=== PATIENT | female | born 1960 | race Caucasian/White ===

== ENCOUNTER 2017-05-31 23:44 | Emergency (ER) | payer OTHER ==
[~2017-05-31] VITALS: Ht 172.7 cm; Wt 90.7 kg
[~2017-05-31 23:44] MED LIST: LISINOPRIL10 MG PO; NAPROSYN500 MG PO; NORCO 5-325 TA1 EACH PO; NORVASC5 MG PO; PANTOPRAZOLE SO40 M1 PO; ULTRAM 50MG TAB50 MG PO; VICODIN 5-5001 EACH PO; XANAX 0.5 MG0.5 M1 PO
[2017-06-01] MEDS ORDERED: NORCO 5-325 TA1 EACH PO (00:46)
[2017-06-01] MEDS ORDERED: SENNA-DOCUSATE1 EACH PO (00:46)
[2017-06-01] MEDS ORDERED: NAPROSYN500 MG PO (00:46)
== END 2017-06-01 01:31 | disposition home or self-care (01) ==
LOC: ER 23:44
DX: S63.592A Other specified sprain of left wrist, initial encounter (principal); I10 Essential (primary) hypertension; K21.9 Gastro-esophageal reflux disease without esophagitis; F17.210 Nicotine dependence, cigarettes, uncomplicated; W22.8XXA Striking against or struck by other objects, initial encounter; Y93.89 Activity, other specified; Y92.89 Other specified places as the place of occurrence of the external cause; Y99.8 Other external cause status

== ENCOUNTER → 2020-04-06 | Outpatient (CLI) | payer OTHER ==
[~2020-04-06] MED LIST changes: -PANTOPRAZOLE SO40 M1 PO; +PROTONIX 20 MG20 M1 PO; +SENNA-DOCUSATE1 EACH PO
== END ==
LOC: LAB 07:40
PROVIDERS: ATTEND Specialist
DX: Z01.812 Encounter for preprocedural laboratory examination (principal); Z20.828 Contact with and (suspected) exposure to other viral communicable diseases

== ENCOUNTER → 2020-04-11 | Outpatient (CLI) | payer OTHER ==
[~2020-04-11] VITALS: Ht 162.6 cm; Wt 86.2 kg
--- NOTE | 2020-04-13 09:53 | P ---
[facility] [place] [address] PROCEDURE REPORT Name: AWA STOUT Room #: REG NANCIE Davis#: [id number] Admission: 04/11/20 Attend Phys: Randal Coombs Discharge: Date of : 58 Report #: [id number] THIS REPORT FOR: cc: Ricky Wellington,Randal Laughlin MD ~ CC: Randal Wellington MD DATE OF SERVICE: 04/11/2020 PROCEDURE PERFORMED: Upper endoscopy with biopsy. HISTORY OF PRESENT ILLNESS: The patient is a 59-year-old female with a history of intermittent abdominal pain. This is fairly diffuse. She does have a history of gastroesophageal reflux disease, was taking Protonix for a number of years, recently switched to Prilosec [id number]. No change in her symptoms, no improvement in her symptoms. Symptoms typically occur on a daily basis. She denies any nausea, vomiting or dysphagia. Bowel movements have been fairly normal, although some constipation. She has had a previous cholecystectomy. Symptoms are worse after eating. Symptoms began approximately 2 months ago. DESCRIPTION OF PROCEDURE: The risks and benefits of the procedure were explained to the patient, those risks including but not limited to bleeding, perforation and the risk of sedation. She understood these risks and gave informed consent. Sedation was given using propofol per Anesthesia. Next, using a standard Olympus upper endoscope, the scope was placed in the patient's mouth and advanced under direct vision to the esophagus, stomach and into the second portion of the duodenum. Larynx was normal in appearance. The esophagus was normal throughout. The GE junction was normal. Overall, the gastric mucosa was normal. Biopsies were obtained to rule out the possibility of H. pylori. The pylorus was normal and patent. The duodenal bulb, first and second portion were all normal. Random biopsies of the second portion of the duodenum were also obtained to rule out the possibility of celiac sprue. At this point, the scope was then withdrawn and the procedure terminated. The patient tolerated the procedure well. IMPRESSION: Normal upper endoscopy. RECOMMENDATIONS: 1. Await biopsy results. 2. Continue daily PPI therapy. 3. We will start Levsin on a p.r.n. basis for intermittent abdominal pain. 4. The patient states last colonoscopy had colon polyps. She was unsure when [address] [address] PROCEDURE REPORT Name: ARGELIAAWA Room #: REG NANCIE Davis#: [id number] Admission: 04/11/20 Attend Phys: Randal Coombs Discharge: Date of : 58 Report #: [id number] this was performed. In reviewing on the computer, it appears last colonoscopy as far as our history shows 2008; polyps were removed at that time. Prep was fair. Recommended repeat colonoscopy at that time in 1 year. I would recommend repeating colonoscopy at this time. Thank you for allowing me to participate in her care. <ELECTRONICALLY SIGNED> By: Randal Bonilla MD 04/13/20 0953 [id number] [id number] Randal Bonilla MD /nt
--- NOTE | 2020-04-13 18:06 | PATH ---
[facility] [address] [place] [address] PATHOLOGY RPT PROCEDURE Name: ARGELIAAWA Room #: REG NANCIE [place].#: [id number] Admission: 04/11/20 Date of : 58 Discharge: Report #: [id number] Path Case #: [id number] [facility] Accession Number: [id number] . 01 Material submitted: . PART A: duodenum - BIOPSY OF DUODENUM R/O SPRUE PART B: stomach - BIOPSY OF GASTRITIS R/O H. PYLORI . 01 Clinical history: . REFLUX . 02 Diagnosis: A. Small bowel mucosa, duodenum rule out sprue, endoscopic biopsy: - No diagnostic abnormalities present. - Negative for villous blunting or increase in intraepithelial lymphocytes. . B. Gastritis rule out H. pylori, endoscopic biopsy: - Mild chronic gastritis. - Negative for intestinal metaplasia or atrophy. - Negative for Helicobacter pylori (properly-controlled immunohistochemical stain performed). . (IUV:mml; 04/13/2020) QLM 04/13/2020 1504 Local . 02 Electronically signed: . Coral Onofre MD, Pathologist NPI- [id number] . 01 Gross description: . A. Received in formalin labeled "Awa Euceda, BX of duodenum rule out sprue" are multiple coffman-brown soft tissue fragments measuring in aggregate 1.0 x 0.5 x 0.1 cm. The specimen is submitted entirely in A1. . B. Received in formalin labeled "Awa Euceda, BX of gastritis rule out H. pylori" are two coffman-brown soft tissue fragments measuring in aggregate 0.6 x 0.6 x 0.1 cm. The specimen is submitted entirely in B1. [place]12[place] [facility] 04/12/2020 1302 Local . 02 Pathologist provided ICD-10: K29.50, K21.9 . 02 CPT . 518711, 102329, Y15545 Specimen Comment: A courtesy copy of this report has been sent to [phone], [place] [address] PATHOLOGY RPT PROCEDURE Name: AWA EUCEDA DEANGELO Room #: REG NANCIE Davis#: [id number] Admission: 04/11/20 Date of : 58 Discharge: Report #: [id number] Path Case #: [id number] Specimen Comment: [id number] Specimen Comment: Report sent to / DR MACHADO Performed at: [address], [place], [place] [id number] MD Bowen Pastor MD Phone: [phone] Performed at: [address] [id number] MD Coral Onofre MD Phone: [phone]
== END | disposition home or self-care (01) ==
LOC: GI 08:31
PROVIDERS: ATTEND Specialist
DX: R10.9 Unspecified abdominal pain (principal); K21.9 Gastro-esophageal reflux disease without esophagitis; K29.50 Unspecified chronic gastritis without bleeding; I10 Essential (primary) hypertension; F41.9 Anxiety disorder, unspecified; Z90.49 Acquired absence of other specified parts of digestive tract; Z98.890 Other specified postprocedural states; Z79.899 Other long term (current) drug therapy; Z98.51 Tubal ligation status
CPT/HCPCS: 62110; 62900

== ENCOUNTER 2020-10-20 21:09 | Inpatient (IN) | payer OTHER ==
[~2020-10-20] VITALS: Ht 165.1 cm; Wt 89.5 kg
[2020-10-20 21:16] VITALS: BP 158/97
[2020-10-20 21:40] LABS: BASOPHILS 0.7 % (0.0-2.0); EOSINOPHILS 2.3 % (0.0-3.0); HEMATOCRIT 38.4 % (37.0-47.0); LYMPHOCYTES 34.6 % (24.0-44.0); MCH 30.3 pg (26.0-34.0); MCHC 33.8 g/dL (28.0-37.0); MCV 89.7 fL (80.0-100.0); MONOCYTES 6.4 % (1.0-8.0); PLATELET COUNT 239 thou/uL (150-400); RBC 4.28 mil/uL (4.20-5.00); RDW 13.5 % (10.5-14.5); WBC 8.9 thou/uL (4.0-11.0)
[2020-10-20 21:47] LABS: ANION GAP 10 mmol/L (7-16); BUN 12 mg/dL (7-18); CALCIUM 8.7 mg/dL (8.5-10.1); CHLORIDE 107 mmol/L (98-107); CO2 27 mmol/L (21-32); CREATININE 1.1 mg/dL (0.6-1.0); GLUCOSE 97 mg/dL (74-106); POTASSIUM 3.5 mmol/L (3.5-5.1); SODIUM 144 mmol/L (136-145)
[2020-10-20 21:59] LABS: ALBUMIN 3.3 g/dL (3.4-5.0); LIPASE 230 U/L (73-393); SGOT 13 U/L (15-37); SGPT 26 U/L (30-65); TOTAL BILIRUBIN 0.3 mg/dL (0.2-1.0); TOTAL PROTEIN 6.7 g/dL (6.4-8.2); TROPONIN-I <0.06 ng/mL (<0.06)
[2020-10-20] MEDS ORDERED: XYZAL5 MG PO (23:17)
[2020-10-20 23:42] VITALS: BP 131/71
[2020-10-21] VITALS (10 sets, daily range): BP systolic 122–164; BP diastolic 69–92
--- NOTE | 2020-10-21 02:02 | NUR ---
PT WAS ADMITTED TO THE UNIT FROM THE ER IN A STABLE CONDITION.PT DENIED PAIN ON ADMISSION.UP ADLIB WITH A STEADY GAIT.ADMISSION DONE.SR ON TELE.PT RESTING ON HER BED AT THIS TIME.CALL LIGHT WITHIN REACH.
[2020-10-21 06:01] LABS: CHOLESTEROL 185 mg/dL (<200); HDL CHOLESTEROL 44 mg/dL (>40); LDL CHOLESTEROL 124 mg/dL (<100); SERUM ASSESSMENT Clear; TC:HDL 4.2 Ratio (Not establshd); TRIGLYCERIDE 85 mg/dL (<150); VLDL 17 mg/dL (<40)
[2020-10-21 06:03] LABS: ANION GAP 12 mmol/L (7-16); BUN 12 mg/dL (7-18); CALCIUM 8.7 mg/dL (8.5-10.1); CHLORIDE 109 mmol/L (98-107); CO2 23 mmol/L (21-32); GLUCOSE 98 mg/dL (74-106); POTASSIUM 3.6 mmol/L (3.5-5.1); SODIUM 144 mmol/L (136-145); TROPONIN-I <0.06 ng/mL (<0.06)
--- NOTE | 2020-10-21 09:06 | EKG ---
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: NATHEN : 1960 Requested By: Lorenzo Porter Order Number: [id number] MD: Vito Zavaleta Measurements Intervals Boyce Rate: 71 P: -5 [place]: 139 QRS: -12 QRSD: 88 T: 17 QT: 401 QTc: 436 Interpretive Statements Sinus rhythm Low voltage, precordial leads Abnormal R-wave progression, early transition Compared to ECG 12/07/2015 16:36:33 Low QRS voltage now present ST (T wave) deviation no longer present Electronically Signed On 10-21-2020 9:06:28 CDT by Vito Zavaleta [email or web address] <ELECTRONICALLY SIGNED> By: Vito Zavaleta MD, [facility] 10/21/20905 14 14 Vito Zavaleta MD, [facility] /EPI
[2020-10-22 03:05] LABS: GLYCOHEMOGLOBIN (HGB A1C) 5.7 % (4.8-5.6)
[2020-10-22 04:57] VITALS: BP 157/78
--- NOTE | 2020-10-22 06:42 | NUR ---
PATIENTS CARES WERE ASSUMED AT SHIFT CHANGE.PATIENT WAS ASSESSED AND MEDS WERE PASSED. ORTHOSTATIC B/P WERE DONE AT THE START OF THIS SHIFT REVEALED NO SIG NIFICANT CHANGES. ROUNDS WERE DONE. THE BED IS IN A LOW AND LOCKED POSITION. THE BED ALARM IS ON.
[2020-10-22 08:25] VITALS: BP 149/79
[2020-10-22 08:45] VITALS: BP 149/79
--- NOTE | 2020-10-22 09:25 | 2DMMODE ---
[facility] [place] [address] 2 D/M-MODE ECHOCARDIOGRAM Name: AWA STOUT [facility] Room #: 208-P ADM IN M.R.#: [id number] Admission: 10/20/20 Attend Phys: Anna Marie Waite MD Discharge: Date of : 58 Report #: [id number] THIS REPORT FOR: cc: Ricky Wellington Steven F. DO Lammoglia, Francisco J. MD ~ APPROVED REPORT Study performed: 10/22/2020 08:19:58 EXAM: Comprehensive 2D, Doppler, and color-flow Echocardiogram Patient Location: Bedside Room #: 219 Status: routine BSA: 1.97 HR: 64 bpm BP: 157/78 mmHg Rhythm: NSR Other Information Study Quality: Good Indications Chest Pain 2D Dimensions RVDd: 37.26 mm IVSd: 11.33 (7-11mm) LVOT Diam: 19.05 (18-24mm) LVDd: 48.55 mm PWd: 11.32 (7-11mm) Ascending Ao: 31.33 (22-36mm) LVDs: 35.96 (25-40mm) Left Atrium: 38.51 (27-40mm) Aortic Root: 33.29 mm Volumes Left Atrial Volume (Systole) Single Plane 4CH: 48.03 mL Single Plane 2CH: 43.78 mL LA ESV Index: 25.00 mL/m2 Aortic Valve AoV Peak Conrado.: 1.55 m/s AO Peak Gr.: 9.60 mmHg LVOT Max P.65 mmHg LVOT Max V: 0.96 m/s ZORA Vmax: 1.76 cm2 [facility] [address] [place] [address] 2 D/M-MODE ECHOCARDIOGRAM Name: AWA STOUT Room #: 208-P [facility] IN ..#: [id number] Admission: 10/20/20 Attend Phys: Anna Marie Waite, Discharge: Date of : 58 Report #: [id number] Mitral Valve E/A Ratio: 1.1 MV Decel. Time: 176.43 ms MV E Max Conrado.: 1.10 m/s MV A Conrado.: 0.97 m/s MV PHT: 51.16 ms IVRT: 83.04 ms Pulmonary Valve PV Peak Conrado.: 0.75 m/s PV Peak Gr.: 2.23 mmHg Pulmonary Vein P Vein S: 0.71 m/s P Vein A: 0.32 m/s P Vein D: 0.53 m/s P Vein A Dur.: 147.6 msec P Vein S/D Ratio: 1.34 Tricuspid Valve TR Peak Conrado.: 2.06 m/s RAP Estimate: 5.00 mmHg TR Peak Gr.: 17.00 mmHg PA Pressure: 22.00 mmHg Left Ventricle The left ventricle is normal size. There is normal LV segmental wall motion. There is normal left ventricular wall thickness. Left ventricular systolic function is normal. LVEF is 55-60%. Moderate diastolic dysfunction is present (pseudonormal filling). Right Ventricle The right ventricle is normal size. The right ventricular systolic function is normal. Atria The left atrium size is normal. The right atrium size is normal. Aortic Valve The aortic valve is normal in structure. No aortic regurgitation is present. There is no aortic valvular stenosis. Mitral Valve The mitral valve is normal in structure. Mild mitral regurgitation. No evidence of mitral valve stenosis. Tricuspid Valve The tricuspid valve is normal in structure. Trace tricuspid [facility] [address] [place] [address] 2 D/M-MODE ECHOCARDIOGRAM Name: AWA STOUT [facility] Room #: 208-P [facility] IN M.R.#: [id number] Admission: 10/20/20 Attend Phys: Anna Marie Waite, Discharge: Date of : 58 Report #: [id number] regurgitation. Estimated PAP is 20-25mmHg. Pulmonic Valve The pulmonary valve is normal in structure. There is no pulmonic valvular regurgitation. Great Vessels The aortic root is normal in size. The ascending aorta is normal in size. IVC is normal in size and collapses >50% with inspiration. Pericardium There is no pericardial effusion. <Conclusion> The left ventricle is normal size. There is normal left ventricular wall thickness. LVEF is 55-60%. The aortic valve is normal in structure. The mitral valve is normal in structure. Mild mitral regurgitation. The tricuspid valve is normal in structure. Trace tricuspid regurgitation. Estimated PAP is 20-25mmHg. The pulmonary valve is normal in structure. There is no pericardial effusion. <ELECTRONICALLY SIGNED> By: Justin Cole MD 10/22/20924 4 4 Justin Cole MD /INF
[2020-10-22 11:45] VITALS: BP 134/74
[2020-10-22 11:51] VITALS: BP 134/74
[2020-10-22] MEDS ORDERED: PEPCID20 MG PO (12:37)
[2020-10-22] MEDS ORDERED: BAYER CHEWABLE81 MG PO (12:37)
[2020-10-22 14:42] VITALS: BP 134/74
--- NOTE | 2020-10-22 15:18 | NUR ---
PT CARE ASSUMED AT 0700. ASSESSMENTS CHARTED. MEDICATIONS CHARTED. RAC IV. SINUS RHYTHM. TOILET. COVID VACCINE X 2. NM STRESS TEST. ECHO. PT DISCHARGED TO HOME. DISCHARGE PAPERWORK SIGNED. TELEMETRY D/C'D. IV D/C'D.
== END 2020-10-22 15:30 | disposition home or self-care (01) | DRG 305 ==
LOC: ER 21:09 → 2N 23:09 → EROBS 23:09 → 2N 10-21 00:09
PROVIDERS: Emergency Medicine; Nurse Practitioner Family; ADMIT Internal Medicine; ATTEND Internal Medicine
DX: I16.1 Hypertensive emergency (principal); I10 Essential (primary) hypertension; K21.9 Gastro-esophageal reflux disease without esophagitis; J30.9 Allergic rhinitis, unspecified; E66.9 Obesity, unspecified; Z90.49 Acquired absence of other specified parts of digestive tract; Z68.32 Body mass index [BMI] 32.0-32.9, adult; Z79.899 Other long term (current) drug therapy
CPT/HCPCS: 10081